=== PATIENT | female | born 1950 | race Caucasian/White ===

== ENCOUNTER → 2017-11-04 08:46 | Outpatient (CLI) | payer MEDICARE, OTHER, SELFPAY ==
--- NOTE | 2017-11-04 | DI.MRI.S_ITS ---
PROCEDURE: MR HIP RT WO CON INDICATIONS: IMPINGEMENT OF RIGHT HIP TECHNIQUE: Noncontrast coronal T1 spin echo and STIR through the bony pelvis. Coronal and axial T2 fast spin echo with fat saturation, sagittal T1 spin echo, and oblique axial T2 fast spin echo with fat saturation through the hip. COMPARISON: [facility], , HIPBILAT 3TO4V W PEL IF PERFD, 06/01/2017, 10:04. FINDINGS: Image quality: Excellent. Bones and joints: There is geographic low T1 and mixed STIR signal intensity within the right femoral head, measuring roughly 24 mm transverse by 11 mm craniocaudal by 40 mm anteroposterior, and demonstrating thin surrounding low T1/T2 intensity curvilinear signal. There is mild impaction of the femoral head, consistent with a subchondral fracture. There are secondary degenerative sequelae within the right superior acetabulum and right femoral head, as evidenced by ill-defined T2 signal elevation and multiple subchondral cysts. There is a moderate right hip joint effusion. Moderate right and mild left hip periarticular osteophyte formation is present. No evidence of left femoral head avascular necrosis. The visualized lower lumbar spine appears normally aligned. Tendons and ligaments: The gluteus medius and minimus tendons appear intact, without associated muscle atrophy. The nearby proximal iliotibial band also appears intact. The iliopsoas tendon appears intact, without adjacent bursal fluid collections or evidence for impingement syndrome. The origin of the hamstring tendon is intact at the ischial tuberosity, as well as the associated sacrotuberous ligament. The straight and reflected heads of the rectus femoris muscle origin appear intact, as well as the conjoint tendon. The ligamentum teres appears intact where visualized. Labrum and cartilage: High T2 signal intensity traverses the anterosuperior labrum. Cartilage surface of the femoral head appears of normal thickness. The alpha angle of the femur is within normal limits at less than 55 degrees. Soft tissues: Visualized muscles demonstrate normal bulk and internal signal. Quadratus femoris muscle demonstrates no internal edema to suggest ischiofemoral impingement. The proximal sciatic neurovascular bundle appears normal adjacent to the hamstring tendons. No free pelvic fluid. Bladder wall thickness is normal. Genitourinary structures and bowel loops appear normal where visualized. IMPRESSION: 1. 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 There is severe secondary right hip osteoarthritis with associated right hip labral tearing and a moderate right hip joint effusion. Dictated by: Mayur Floyd M.D. on 11/04/2017 at 9:13 Approved by: Mayur Floyd M.D. on 11/04/2017 at 9:29
== END ==
PROVIDERS: PCP Nurse Practitioner Family; Visit Provider Anesthesiology Pain Medicine
DX: S72.051A Unspecified fracture of head of right femur, initial encounter for closed fracture (principal); S73.101A Unspecified sprain of right hip, initial encounter; M25.851 Other specified joint disorders, right hip; M87.9 Osteonecrosis, unspecified; M16.11 Unilateral primary osteoarthritis, right hip; M25.451 Effusion, right hip
CPT/HCPCS: 73721

== ENCOUNTER 2018-02-17 05:58 | Inpatient (IN) | payer MEDICARE, OTHER, SELFPAY ==
[2018-02-02 10:23] VITALS: BMI 29.0
[2018-02-17] VITALS (15 sets, daily range): BP systolic 106–136; BP diastolic 42–71; PULSE 53–66; RESP 9–29; TEMP 35.9–36.8; O2SAT 94–100; BMI 34.2
--- NOTE | 2018-02-17 | DI.RAD.S_ITS ---
PROCEDURE: XR PELVIS 1-2V INDICATIONS: INNER OP PRACTICE HARDWARE TECHNIQUE: Intra-operative view of the pelvis and hip acquired. COMPARISON: [facility], CR, HIPBILAT 3TO4V W PEL IF PERFD, 06/01/2017, 10:04. [facility], MR, MR HIP RT WO CON, 11/04/2017, 8:59. FINDINGS: Bones: Intraoperative devices prior to placement of arthroplasty prostheses are in expected positions. No fractures or suspicious bony lesions. Soft tissues: Overlying surgical retractors are present, along with other intraoperative changes. IMPRESSION: Normal intraoperative examination. Dictated by: Cruz Sawyer M.D. on 02/17/2018 at 9:18 Approved by: Cruz Sawyer M.D. on 02/17/2018 at 9:18
--- NOTE | 2018-02-17 | DI.RAD.S_ITS ---
PROCEDURE: XR HIP W PEL IF DONE RT 2V INDICATIONS: RIGHT TOTAL HIP TECHNIQUE: 2 view(s) of the hip acquired. COMPARISON: X-ray pelvis and right hip, 11/26/2017. FINDINGS: Bones: Patient is status post right hip arthroplasty, with hardware components in expected positions. The hip joint appears congruent. The visualized bony structures appear intact. Soft tissues: Overlying postoperative changes are noted. No suspicious soft tissue densities. IMPRESSION: Expected postsurgical changes. Dictated by: Earnest Parra M.D. on 02/17/2018 at 11:57 Approved by: Earnest Parra M.D. on 02/17/2018 at 11:59
[2018-02-17] MEDS: LACTATED RINGERS 1,000 ML 42 ML IV ×3 (07:00→10:14)
[2018-02-17] MEDS: VANCOMYCIN 1,000 MG/200 ML FROZ.PIGGY 200 MG IV (07:14)
[2018-02-17] MEDS: ACETAMINOPHEN 325 MG TABLET 975 MG PO ×3 (07:18→21:14)
[2018-02-17] MEDS: CELECOXIB 200 MG CAPSULE PO (07:19)
[2018-02-17] MEDS: PREGABALIN 75 MG CAPSULE PO (07:20)
[2018-02-17] MEDS: CEFAZOLIN 2 GM/100 ML FROZ.PIGGY IV ×2 (07:56→16:09)
--- NOTE | 2018-02-17 07:56 | PM.PREOP ---
Pre-operative Note Interval Note Pre-op Check: Yes History & Physical Reviewed by Physician and Yes Exam Performed Changes: No
--- NOTE | 2018-02-17 07:59 | P.OP_ITS ---
Operative Date/Time/Diagnoses Date of procedure: 02/17/18 Time of procedure: 08:06 Pre-op diagnosis: right hip AVN Post-op diagnosis: same Procedure & Clinicians Procedure: right total hip arthroplasty Same procedure as scheduled: Yes Indications: The patient has had progressively worsening right hip pain with radiographic changes consistent with arthritis. Non-operative management has failed and the patient has requested total hip replacement. The risks, benefits and alternatives to surgery were discussed with the patient prior to proceeding. Risks discussed included, but were not limited to, failure to relieve pain, leg length discrepancy, dislocation, stiffness, infection, nerve damage, deep venous thrombosis, pulmonary embolism, stroke, coma, heart attack, permanent paralysis and , as well as the potential need for eventual revision of the prosthetic. Surgeon: Nicolette Lowry Analytical Scientist: Mehdi Shelton Anesthesia Type: General and Spinal Operative Notes Findings: Right hip severe avascular necrosis, adequate stability Closure Type: primary Specimen(s): none sent Implants & Drains: [employer] R3 50, anthology size 6 standard offset, +0 Applied: drain(s) Estimated Blood Loss (mL): 300 Blood products transfused: none Procedure in detail: The patient was seen in the pre-operative area, where the patient identified the right hip as the operative site and this was marked with my initials. The patient received pre-operative antibiotics and was taken to the operating room and placed on the operative table in the left lateral decubitus position after satisfactory anesthesia. A realtime court reporter out was performed. The right leg was prepared from the ankle to the iliac crest with ChloroPrep in the usual fashion and draped through sterile drapes. The hip was approached through an approximately 20 cm incision centered over the greater trochanter and curving gently posteriorly as it went proximally. This was carried sharply to the fascia chuck, which was divided and retracted with a self retaining retractor. The trochanteric bursa was excised with care being taken to avoid the sciatic nerve, which was identified and protected throughout the case. The short external rotators were incised and the capsulomuscular flap was raised and tagged for later repair. The hip was dislocated, and a femoral neck osteotomy performed approximately 15 mm above the lesser trochanter. Retractors were placed around the femur. The canal was opened with a box cutting osteotome, followed by a T handled reamer and a lateralizing reamer. The chili pepper broach was then used, followed by sequential broaching until there was good stability of the broach in the femur. Retractors were placed to expose the acetabulum. The labrum and central soft tissues were removed. Reaming was performed initially going up in 2 mm increments, then 1 mm increments until good bite was obtained with an odd sized reamer. The cup 1 mm larger than the last reamer was then inserted using the appropriate anteversion guides. A trial neutral liner was placed. The broach was placed in the canal. A trial head and neck were then placed and the hip relocated and checked for leg length and stability. An intraoperative film confirmed the component position and no evidence of fracture. The patient was stable in the position of sleep, of squatting, and could be put through a range of motion with 45 degrees internal rotation without dislocation. At 90 degrees flexion, internal rotation to 70? was possible before dislocation. This was felt to be satisfactory and the appropriate components were opened, and the trials were removed. The acetabular liner was impacted into position. The final stem was then impacted into the prepared femoral canal. A brief Betadine soak was performed while trialing with head options. The hip was meticulously irrigated with normal saline. Finally the femoral head was impacted onto the stem. The acetabulum was cleared of all material and the hip relocated one final time. The capsulomuscular flap was then repaired to the greater trochanter though an awl hole using the tag sutures. The short external rotators were repaired with a black braided nylon. A deep drain was placed and brought out anteriorly. The fascia chuck was closed with black braided nylon. The subcutaneous layer was closed with barbed sutures and SteriStrips. A Yolanda dressing was applied and the patient was taken to recovery having tolerated the procedure well. Complications: none Condition: stable Disposition: Acute Care Plan for aftercare: The patient will be maintained on a standard total hip replacement protocol with weight bearing as tolerated and posterior hip precautions. The patient will receive Aspirin and sequential compression devices for DVT prophylaxis. The patient will be discharged home when safe for the home environment.
--- NOTE | 2018-02-17 08:31 | SUR.OPER ---
Lateral on padded OR bed. Gel axillary roll. Arms secured on padded armboard with pillow supporting top arm. Padded hip positioner braces x4 - anterior and posterior chest and pelvis. Additional gel pad used anterior pelvis. Gel pad under bottom leg from knee to foot and secured with tape over sheet.
[2018-02-17] MEDS: BUPIVACAINE 0.25% W/ EPI VIAL 50 ML INJ (08:44)
[2018-02-17] MEDS: BUPIVACAINE LIPOSOME 266 MG/20 ML VIAL INJ (08:45)
[2018-02-17] MEDS: SODIUM CHLORIDE IRRIG SOLUTION 250 ML, EPINEPHrine 1 MG IRR (08:46)
[2018-02-17] MEDS: LACTATED RINGERS 1,000 ML 125 ML IV ×2 (11:49→21:18)
[2018-02-17] MEDS: OXYCODONE IR 5 MG TABLET PO (11:50)
[2018-02-17] MEDS: OXYCODONE IR 10 MG TABLET PO ×3 (14:10→21:14)
--- NOTE | 2018-02-17 14:55 | PT.IIE ---
Current Diagnoses Unilateral primary osteoarthritis, right hip (02/17/18) Idiopathic aseptic necrosis of right femur (02/17/18) Surgery Performed Operation Date: 02/17/18 07:45 Actual Procedures p Total Hip Arthroplasty(Right) - Nicolette Lowry MD Surgical History (Last Updated 02/02/18 @ 11:19 by Mindi Becerril, RN) H/O arthroscopy of left knee (Acute) H/O bilateral breast reduction surgery (Acute) History of ankle surgery (Acute) History of appendectomy (Acute) History of carpal tunnel release of both wrists (Acute) History of colonoscopy (Acute) History of esophagogastroduodenoscopy (EGD) (Acute) Hx of hysterectomy, total (Acute) S/p total knee replacement, bilateral (Acute) Medical History (Last Updated 02/02/18 @ 11:19 by Mindi Becerril, RN) Arthritis (Acute) Bruise (Acute) Depression (Acute) Facial basal cell cancer (Acute) Hypertension (Acute) Idiopathic aseptic necrosis of right femur (Acute) Nasal fracture (Acute) Pain in right hip (Acute) Unilateral primary osteoarthritis, right hip (Acute) Physical Therapy Inpatient Evaluation/Re-Eval M1 PT/OT-IP Prior Functional Status Start: 02/17/18 15:31 Freq: NEEDED Status: Active Protocol: Document 02/17/18 14:55 AB (Rec: 02/17/18 15:53 AB [id number]) Medical Review Prior Functional Status Medical History Reviewed Yes Communication able to make needs known Mobility and Gait stated that she is independent with all mobilities and ambulation without AD Social History Household Members spouse Living Arrangements House Number of Stairs To Enter/Railing? pt lives in a 2 level house: 7 steps with bilateral rails to enter and 3 steps with R rail + wall to bedroom; but pt will stay at her sister's house and is a one level house without steps to enter below information is regarding sister's house Home Environment High Toilet Walk in Shower Built-In Shower Seat Home Equipment Front Wheel Walker Grab Bars Near Toilet Grab Bars In Shower Employment Status Retired M2 PT-IP Current Condition Start: 02/17/18 15:31 Freq: NEEDED Status: Active Protocol: Document 02/17/18 14:55 AB (Rec: 02/17/18 15:53 AB [id number]) Physical Therapy Current Condition Current Condition Evaluation Date 02/17/18 Treatment Diagnosis s/p R JENNIFER posterior; difficulties in walking Onset Date 02/17/18 Precautions Posterior Hip Precautions No Hip Flexion > 90 degrees No Hip Internal Rotation No Hip Adduction Weight Bearing Status Weight Bearing Status Weight Bear as Tolerated M3 PT-IP Subjective Start: 02/17/18 15:31 Freq: NEEDED Status: Active Protocol: Document 02/17/18 14:55 AB (Rec: 02/17/18 15:53 AB [id number]) Subjective Physical Therapy Visit Type Type Initial Evaluation Visit Start Time 14:55 Visit Stop Time 15:29 Total Visit Minutes 34 Number of HAND EXPANSION ENVELOPE MAKER Visits 0 Physical Therapy Visit Comments Patient Comments pt requesting to use the toilet Therapy Pain Assessment Pain When Pain Assessed At Rest Pain Present Pain Present Pain Reported Location Right Hip Intensity 4 Scale Used increased 5/10 with mobility Pain Management Techniques Apply Cold Re-positioning Timing of Activity with Medications M4 PT-IP Mobility and Gait Start: 02/17/18 15:31 Freq: NEEDED Status: Active Protocol: Document 02/17/18 14:55 AB (Rec: 02/17/18 15:53 AB [id number]) PT-Bed Mobility Assessment Supine to Sit Supine to Sit Standby Assistance 1 Person Assistance Sit to Supine Sit to Supine Minimal Assistance 1 Person Assistance Scooting Scooting to Edge of Bed Standby Assistance PT-Transfer Assessment Sit to and From Stand Sit to and from Stand Contact Guard Assistance Equipment Transfer Assistive Device Gait Belt Front Wheeled Walker Orthotic/Prosthetic Devices or Brace: No Transfers Transfer Destination Toilet Transfer Technique pt ambulated to the toilet using FWW Transfer Ability Level of Assist Contact Guard Assistance Comments Mobility Comments bp in supine: 137/56 pt completed supine to sit SBA with cues. able to complete sit to stand CGA and ambulated to the toilet using FWW CGA ~ 10 ft. pt without c/o dizziness/lightheadness/nausea . pt completed sit to stand SBA using grab bar from the toilet and c/o cold sweats after and pt ambulated back to bed using FWW CGA. pt then c /o nausea. pt assisted back to bed min A to elevate RLE up in bed. positioned pt in bed . BP checked: 110/46. nurse informed. BP checked again after ~ 5 min of supine restin/57. call light and table placed within reach. Gait Assessment Gait Gait Assistance Required: Contact Guard Assist Distance (Feet) 10 Able to Maintain Weight Bearing Status Yes During Gait Assistive Devices Assistive Device Gait Belt Front Wheeled Walker Orthotic/Prosthetic Devices or Brace: No Gait Deviations General Gait Pattern Antalgic Factors Limiting Gait Function Factors Limiting Gait Function Decreased Activity Tolerance Decreased Strength Pain Poor Balance Poor Safety Awareness PT-Balance Assessment Sitting Balance and Reactions Static Sitting Balance Ability Good Dynamic Sitting Balance Ability Good Standing Balance and Reactions Static Standing Balance Ability Fair Dynamic Standing Balance Ability Fair Device Used FWW M5 PT-IP Objective Assessments Start: 02/17/18 15:31 Freq: NEEDED Status: Active Protocol: Document 02/17/18 14:55 AB (Rec: 02/17/18 15:53 AB [id number]) Orientation Orientation/Cognition Level of Alertness Alert Orientation Name Age Birthday Month Date Year Day of Week Place Situation Safety Awareness Understands Safety Issues Gross Range of Motion Lower Extremity ROM Assessment Within Functional Limits Strength Lower Extremity Strength Assessment Right Impaired Hip 3+/5 Knee 4-/5 Ankle 4/5 Muscle Tone Muscle Tone WNL Yes M6 PT-IP Treatment Start: 02/17/18 15:31 Freq: NEEDED Status: Active Protocol: Document 02/17/18 14:55 AB (Rec: 02/17/18 15:53 AB [id number]) Physical Therapy Treatment Education Education Provided Precautions Weight Bearing Status Post-Op Packet Safety M7 PT-IP Assessment and Plan Start: 02/17/18 15:31 Freq: NEEDED Status: Active Protocol: Document 02/17/18 14:55 AB (Rec: 02/17/18 15:53 AB [id number]) PT Summary Assessment and Plan Potential Rehabilitation Potential Good Status of Condition at Evaluation Evolving Summary Impairments Pain ROM Strength Balance Coordination Sensation Tone Cognition Bed Mobility Transfers Gait Activity Tolerance Assessment Summary pt requiring SBA to CGA with mobility but unable to tolerate much activity due to c/o nausea with decrease in BP . pt plans to go home with spouse to assist her. pt is set up for outpt PT. Goals Bed Mobility Goal Independent Transfer Goal Independent Front Wheeled Walker Gait Goal Independent Front Wheel Walker Gait Distance 200 Days to Meet Goals 3 Frequency of Treatment Frequency Of Treatment Twice a Day Treatment Plan Physical Therapy Treatment Plan Bed Mobility Training Transfer Training Gait Training Therapeutic Exercise Balance Retraining Post Op Education Discharge Planning Hot or Cold Pack Neuromuscular Re-ed Coordination Retraining Manual Therapy Other Recommendations and Next Treatment ambulation Focus Recommendations To Nursing Amount of Assist Needed 1 Person Assist Discharge Recommendations PT Discharge Recommendations Home with Assistance Outpatient PT
[2018-02-17] MEDS: ATENOLOL 25 MG TABLET PO (21:15)
[2018-02-17] MEDS: DOCUSATE 100 MG CAPSULE PO (21:15)
[2018-02-17] MEDS: ATORVASTATIN 20 MG TABLET PO (21:16)
[2018-02-17] MEDS: ASPIRIN EC 81 MG TABLET PO (22:34)
[2018-02-18 00:22] VITALS: BP 125/65; PULSE 61; RESP 16; TEMP 36.8; O2SAT 99
[2018-02-18] MEDS: OXYCODONE IR 5 MG TABLET PO (00:28)
[2018-02-18] MEDS: CEFAZOLIN 2 GM/100 ML FROZ.PIGGY IV (00:28)
[2018-02-18] MEDS: OXYCODONE IR 10 MG TABLET PO ×3 (04:08→11:00)
[2018-02-18 05:26] VITALS: BP 126/57; PULSE 63; RESP 18; TEMP 37.2; O2SAT 99
[2018-02-18 06:32] LABS: Hematocrit 30.5 % (36-46); Hemoglobin 10.4 g/dL (12.0-16.0)
[2018-02-18 07:55] VITALS: BP 132/61; PULSE 63; RESP 20; TEMP 36.7; O2SAT 99
[2018-02-18] MEDS: ACETAMINOPHEN 325 MG TABLET 975 MG PO (08:41)
[2018-02-18] MEDS: DOCUSATE 100 MG CAPSULE PO (08:41)
[2018-02-18] MEDS: PANTOPRAZOLE 20 MG TABLET PO (08:41)
[2018-02-18] MEDS: ASPIRIN EC 81 MG TABLET PO (08:41)
[2018-02-18] MEDS: ESCITALOPRAM 10 MG TABLET 20 MG PO (08:41)
[2018-02-18 08:52] VITALS: BP 132/61
[2018-02-18] MEDS: LOSARTAN 50 MG TABLET 100 MG PO (08:52)
--- NOTE | 2018-02-18 09:08 | P.DS_ITS ---
History of Present Illness Date Patient Seen: 02/18/18 Time Patient Seen: 09:04 Chief complaint: TOTAL HIP ARTHROPLASTY R [id number] Narrative: Hospital day 2, postop day 1 following right total hip arthroplasty by Dr. Lowry. Patient was up with physical therapy yesterday. They felt she was stable for discharge to home with assist. Pain controlled with oxycodone 5- 10 mg. She does not have Vistaril. H&H today 10.4/30.5. Discharge Providers Date of admission: 02/17/18 05:58 Primary care physician: JANNETTE Cantor Consults: 02/17/18 11:33 Consult to Discharge Planning Routine Comment: Consult to Physical Therapy Evaluate & Treat Comment: Physician Instructions: post op JENNIFER protocol Consult to Respiratory Therapy Evaluate & Treat Comment: Physician Instructions: Evaluate and treat Discharge provider: John Miller PA-C Discharge Date: 02/18/18 Summary Discharge Diagnosis: Status post right total hip arthroplasty Hospital Course: Patient remained stable postoperatively. Progressed with ambulation with physical therapy. Hemovac DC on postop day 1. Patient was seen by Dr. Lowry on postop day 1. Status at Discharge Cognitive/behavioral status at discharge: Alert, oriented no acute distress. Overall status at discharge: patient is progressing back to baseline Time Spent with Patient Less than 30 minutes Exam Vital Signs (past 8 hours): - 02/18/18 05:26 02/18/18 07:55 02/18/18 08:52 Temperature 98.9 F 98.1 F Pulse Rate 63 63 Respiratory Rate 18 20 Blood Pressure 126/57 L 132/61 132/61 Pulse Oximetry 99 99 Oxygen Delivery Method Room Air Oxygen Flow Rate 0 Narrative Exam Narrative: Patient alert, oriented no acute distress resting in bed. Legs. Hemovac to right hip area is significant decrease in drainage. ANN vac dressing in place. No calf pain or swelling. Pulses symmetrical. Objective Labs Result Diagrams: 02/18/18 06:13 Labs: Laboratory Results - last 24 hr 02/18/18 06:13 Hgb 10.4 L Hct 30.5 L Discharge Plan Discharge Plan Patient Disposition: Home Discharge comment: Discharged home when cleared by physical therapy. Total hip precautions x6 weeks postop. Patient is a [facility] patient and has pain medication at home. Discharge Med Rec/Prescriptions Prescriptions: New hydroxyzine pamoate [Vistaril] 25 mg capsule 25 mg PO Q6-8H PRN (Reason: spasms) Qty: 20 RF: 0 Continue atorvastatin 20 mg Tablet 20 mg PO BEDTIME RF: 0 meloxicam 15 mg Tablet 15 mg PO DAILY RF: 0 atenolol 25 mg Tablet 25 mg PO BEDTIME RF: 0 acetaminophen [Tylenol Extra Strength] 500 mg Tablet 1,000 mg PO Q6H PRN (Reason: Pain) RF: 0 pantoprazole [Protonix] 20 mg Tablet,Delayed Release (Dr/Ec) 20 mg PO DAILY RF: 0 losartan 100 mg Tablet 100 mg PO DAILY RF: 0 escitalopram oxalate 20 mg Tablet 20 mg PO DAILY RF: 0 calcium carbonate-vitamin D3 [Calcium 600 + D(3)] 600 mg(1,500mg) -400 unit Tablet 1 tab PO DAILY RF: 0 Provider Discharge Instructions Diet: Diet as Tolerated Activity: Ambulate with walker as needed. Total hip precautions x6 weeks postop. Cold/Heat Therapy: Ice to hip area as needed. Skin/Wound/Dressing Care Report to your healthcare provider any signs of infection, such as:: chills, fever, night sweats, increased pain and unusual drainage Dressing: Keep PIC0 dressing in place until postop visit. Visit Report/Discharge Packet Instructions: DI for Hip Replacement Discharge Data Primary Care Provider: Camille Rush Attending Provider: Nicolette Lowry Admit Date/Time: 02/17/18 05:58 Quality VTE Deep Vein Thrombosis/Pulmonary Embolism Present on Admission: No
--- NOTE | 2018-02-18 09:49 | PT.IPTN ---
Current Diagnoses Unilateral primary osteoarthritis, right hip (02/17/18) Idiopathic aseptic necrosis of right femur (02/17/18) Surgery Performed Operation Date: 02/17/18 07:45 Actual Procedures p Total Hip Arthroplasty(Right) - Nicolette Lowry MD Physical Therapy Treatment Note M2 PT-IP Current Condition Start: 02/17/18 15:31 Freq: NEEDED Status: Active Protocol: Document 02/17/18 14:55 AB (Rec: 02/17/18 15:53 AB [id number]) Physical Therapy Current Condition Current Condition Evaluation Date 02/17/18 Treatment Diagnosis s/p R JENNIFER posterior; difficulties in walking Onset Date 02/17/18 Precautions Posterior Hip Precautions No Hip Flexion > 90 degrees No Hip Internal Rotation No Hip Adduction Weight Bearing Status Weight Bearing Status Weight Bear as Tolerated M3 PT-IP Subjective Start: 02/17/18 15:31 Freq: NEEDED Status: Active Protocol: Document 02/18/18 08:57 LJ (Rec: 02/18/18 09:49 LJ [id number]) Subjective Physical Therapy Visit Type Type Treatment Note Visit Start Time 08:57 Visit Stop Time 09:24 Total Visit Minutes 27 Physical Therapy Visit Comments Patient Comments Pt willing to ambulate in hallway. M4 PT-IP Mobility and Gait Start: 02/17/18 15:31 Freq: NEEDED Status: Active Protocol: Document 02/18/18 08:57 LJ (Rec: 02/18/18 09:49 LJ [id number]) PT-Bed Mobility Assessment Supine to Sit Supine to Sit Standby Assistance 1 Person Assistance Head of Bed Elevated Scooting Scooting to Edge of Bed Standby Assistance PT-Transfer Assessment Sit to and From Stand Sit to and from Stand Contact Guard Assistance Equipment Transfer Assistive Device Gait Belt Front Wheeled Walker Orthotic/Prosthetic Devices or Brace: No Transfers Transfer Destination Chair Transfer Ability Level of Assist Contact Guard Assistance Comments Mobility Comments Pt SBA all bed mobility. Had one slight loss of balance posterior at edge of bed but was able to self correct with grabbing FWW. Gait Assessment Gait Gait Assistance Required: Contact Guard Assist Distance (Feet) 140 Able to Maintain Weight Bearing Status Yes During Gait Assistive Devices Assistive Device Gait Belt Front Wheeled Walker Orthotic/Prosthetic Devices or Brace: No Gait Deviations General Gait Pattern Antalgic Decreased Stride Length Factors Limiting Gait Function Factors Limiting Gait Function Decreased Activity Tolerance Decreased Strength Pain Poor Balance Comments Gait Comments Pt demonstrates good posture and positional awareness using FWW. Showed no sign of fatigue and was able to ambulate w/o incident or loss of balance. Transferred to chair SBA. Left in chair with ice pack and all needs w/in reach. M5 PT-IP Objective Assessments Start: 02/17/18 15:31 Freq: NEEDED Status: Active Protocol: Document 02/17/18 14:55 AB (Rec: 02/17/18 15:53 AB [id number]) Orientation Orientation/Cognition Level of Alertness Alert Orientation Name Age Birthday Month Date Year Day of Week Place Situation Safety Awareness Understands Safety Issues Gross Range of Motion Lower Extremity ROM Assessment Within Functional Limits Strength Lower Extremity Strength Assessment Right Impaired Hip 3+/5 Knee 4-/5 Ankle 4/5 Muscle Tone Muscle Tone WNL Yes M6 PT-IP Treatment Start: 02/17/18 15:31 Freq: NEEDED Status: Active Protocol: Document 02/18/18 08:57 BECKIE (Rec: 02/18/18 09:49 BECKIE [id number]) Physical Therapy Treatment Education Education Provided Precautions Weight Bearing Status Post-Op Packet Safety M7 PT-IP Assessment and Plan Start: 02/17/18 15:31 Freq: NEEDED Status: Active Protocol: Document 02/18/18 08:57 BECKIE (Rec: 02/18/18 09:49 LJ [id number]) PT Summary Assessment and Plan Potential Rehabilitation Potential Good Status of Condition at Evaluation Evolving Summary Impairments Pain ROM Strength Balance Coordination Sensation Tone Cognition Bed Mobility Transfers Gait Activity Tolerance Assessment Summary Pt able to tolerate treatment w/o fatigue or dizziness. CGA for gait and cues for posture and core strength during ambulation. Able to sit into chair following precautions. SBA. Goals Bed Mobility Goal Independent Transfer Goal Independent Front Wheeled Walker Gait Goal Independent Front Wheel Walker Gait Distance 200 Days to Meet Goals 3 Frequency of Treatment Frequency Of Treatment Twice a Day Treatment Plan Physical Therapy Treatment Plan Bed Mobility Training Transfer Training Gait Training Therapeutic Exercise Balance Retraining Post Op Education Discharge Planning Hot or Cold Pack Neuromuscular Re-ed Coordination Retraining Manual Therapy Recommendations To Nursing Amount of Assist Needed 1 Person Assist
[2018-02-18] MEDS: IBUPROFEN 600 MG TABLET PO (11:01)
--- NOTE | 2018-02-18 12:06 | CM.DANOTE ---
Discharge Planning/Care Management CM Discharge Assessment Start: 02/18/18 12:06 Freq: Status: Active Protocol: Document 02/18/18 12:06 (Rec: 02/18/18 12:06 [id number]) Discharge Planning Assessment Assigned Software Support Technician CHELSEY Novak Advance Directives? Yes Advance Directives on File No History Provided By Patient Family Member Significant Other Has Patient been admitted in last 30 No days? Prior Living Arrangements House Household Members spouse Type of transporation used prior to Drives own vehicle admit Independent with ADL's Yes Is patient alert and oriented? Yes Caregiver for Another No Patient/Family Preference OP PT Therapy Barriers to Discharge No Discharge Plan Home Community Services Physical Therapy Referrals Initiated None needed Please Provide Date Initial DC 02/18/18 Assessment Was Performed Pre-Anesthesia Assessment Start: 02/02/18 10:23 Freq: Status: Active Protocol: Document 02/02/18 10:23 [facility] (Rec: 02/02/18 10:39 [facility] [id number]) Pre-Anesthesia Assessment Patient Also Known As (PARADISE Rubin Patient Information Reviewed Via Chart Review Phone Assessment Assessment Completed With Patient Primary Care Provider Camille Rush Seen Specialist in Last 12 Months Yes Specialist Seen Orthopedist Primary Language Persian Pulverizer Required No Height 162.56 cm Weight 76.657 kg Body Mass Index (BMI) 29.0 Hearing Ability Hard of Hearing Visual Impairment Partially Limited Visual Assist Glasses Comment Mild hearing loss, left ear Hx Anesthesia Reactions Yes: Post-op nausea Hx Family Anesthesia Reaction No Hx Malignant Hyperthermia No Hx Blood Transfusions Yes: [employer] infusion Comment Patient is adopted; unknown family history Anesthesia Review Requested No Electrophysiology Tech No alcohol intake current alcohol intake frequency holidays/special occasions only Smoking Status Never smoker Substance Use Type does not use Pain Present Denied Pain Comment Right hip, low back, R knee ( referred pain) Musculoskeletal Symptoms Abnormal Gait Back Pain Difficulty Walking Joint Pain Limited Range of Motion History of Falling (Recent or History of Yes ) Patient is completely paralyzed or No completely immobile Ambulatory Aid None/bed rest/nurse assist Mental Status Oriented to own ability Is patient on oxygen? No Does patient have CARD/SOB No Hx Sleep Apnea No CPAP/BIPAP use not prescribed Currently Taking a Beta Jakub Yes: Atenolol Can You Climb a Flight of Stairs Without Yes SOB Hx Chest Pain No Hx SOB No Hx Syncope or Dizziness No Anti-Coagulant Therapy No Has a Driver Utility Worker No Cardiac Testing No Hx Pacemaker/ICD No Cardiac Clearance Received Not Applicable Comment Walks up to 2 miles/day Diet Type At Home Regular dysphagia No Bladder Pattern Nocturia Urgency Urinary Catheter Present No Hx Urinary Self Catheterization No Diabetes No Patient No Lactating No Hx Drug Resistant Organism No Presence of External or Internal Medical Yes: hardware bilateral knees, Devices right foot Have you traveled outside the [facility] in the last 30 days? Marital Status Lives With spouse Prior Living Arrangements House Number of Floors (Floors) One Floor Number of Stairs To Enter/Railing? 3 steps up to bedroom/bathroom w/rail 7 steps into the house Support System Family Sibling(s) Spouse Does the Patient Have Assistance After Yes Surgery Patient Discharge Plan Description Return Home Comment Retired Feels Safe in Current Environment Yes Been Physically Hurt or Threatened By a No Person in Current Environment Do you have thoughts of harming yourself None or others? Are you currently considering suicide? No Do you have a plan to hurt yourself or No Plan others? Do You Have Any Spiritual Beliefs That No May Affect Your HC Choices? Do You Have Any Cultural Practices That No May Affect Your HC Choices? Spiritual Referral None Who Can We Speak to About Patient's Care Family & Friends Identifying Code for Release of Patient Declined Information Health Care Proxy/Next of Kin - Ellis Esqueda Health Care Proxy Emergency Contact Name Same Emergency Contact Phone Number Same Advance Directives? Yes Advance Directives on File No Requested Patient Bring Advanced Yes Directives DOS Power of Air Traffic Control Specialist Yes Power of Air Traffic Control Specialist Name Nuvia Shankaribald - Friend PAC Instructions Assistance for 24 hours post- op Do not shave/clip surgical site Durable medical equipment Medications to take/avoid Nasal antibiotic No ETOH/petroleum product on skin DOS NPO Ortho class Post-op transportation Pre-op antibiotic Pre-surgical wash Sensory aids Sturdy shoes/comfortable clothes Do not bring valuables and remove jewelry Comment Check-in [id number]
--- NOTE | 2018-02-18 12:37 | PC.NURSE ---
IV removed and HV removed. Pt resting in bed.
--- NOTE | 2018-02-18 14:38 | PC.NURSE ---
Pt is dressed and ready for discharge home with Spouse. Went over d/c instructions with Pt and Spouse-discussed d/c meds, time of last dose, hip precautions, stroke education, and encouraged fluid intake to prevent constipation. Pt out via w/c by TRANSFUSION AIDE to POV with Spouse and all belongings.
== END 2018-02-18 14:40 | disposition home or self-care (01) | DRG 470 ==
PROVIDERS: Admitting Provider Orthopaedic Surgery; PCP Nurse Practitioner Family; Visit Provider Orthopaedic Surgery
PROC: 0SR90JZ Replacement of Right Hip Joint with Synthetic Substitute, Open Approach (ICD-10-PCS; CPT 27130; principal; 2018-02-17 07:45)
DX: M87.051 Idiopathic aseptic necrosis of right femur (principal); M16.11 Unilateral primary osteoarthritis, right hip; I10 Essential (primary) hypertension; F32.9 Major depressive disorder, single episode, unspecified
CPT/HCPCS: 36415; 72170; 73502; 85014; 85018; 94760; 97116; 97161; 97530; C1776; C9290; J0171; J0690; J2250; J2704; J3010; J3370

== ENCOUNTER → 2019-02-18 09:35 | Outpatient (CLI) | payer MEDICARE, OTHER, SELFPAY ==
[2018-02-17 13:07] VITALS: BMI 34.2
--- NOTE | 2019-02-18 | DI.MG.S_ITS ---
BILATERAL DIGITAL SCREENING MAMMOGRAM 3D/2D WITH CAD: 02/18/2019 CLINICAL: Routine screening. Comparison is made to exams dated: 02/18/2017 mammogram - [facility], 05/01/2015 mammogram, and 09/14/2013 mammogram - [facility]. There are scattered fibroglandular elements in both breasts. Current study was also evaluated with a Computer Aided Detection (CAD) system. No significant masses, calcifications, or other findings are seen in either breast. There has been no significant interval change. IMPRESSION: NEGATIVE There is no mammographic evidence of malignancy. A 1 year screening mammogram is recommended. This exam was interpreted at Station ID: [id number]. NOTE: For mammograms, a report in lay terms will be sent to the patient. Approximately 15% of breast malignancies will not be visualized mammographically. In the management of a palpable breast mass, a negative mammogram must not discourage biopsy of a clinically suspicious lesion. Electronically Signed By: Jimmy andrade/mackenzie:02/19/2019 12:46:44 letter sent: Normal Exam ACR BI-RADS Category 1: Negative [id number]
== END ==
PROVIDERS: PCP Nurse Practitioner Family; Visit Provider Nurse Practitioner Family
DX: Z12.31 Encounter for screening mammogram for malignant neoplasm of breast (principal)
CPT/HCPCS: 77063; 77067